=== PATIENT | female | born 1965 | race Caucasian/White ===

== ENCOUNTER 2018-02-28 13:43 | Emergency (ER) | payer OTHER, MEDICAID | END 2018-02-28 16:38 | disposition home or self-care (01) | LOC: FTE 13:43 | DX: M54.2 Cervicalgia (principal); M62.838 Other muscle spasm; Z87.891 Personal history of nicotine dependence | CPT/HCPCS: 72040; 93005; 99284-25 ==

== ENCOUNTER 2019-02-16 18:29 | Emergency (ER) | payer OTHER | END 2019-02-16 21:14 | disposition home or self-care (01) | LOC: FTE 18:29 | DX: K08.9 Disorder of teeth and supporting structures, unspecified (principal); G56.03 Carpal tunnel syndrome, bilateral upper limbs; J45.909 Unspecified asthma, uncomplicated; F17.210 Nicotine dependence, cigarettes, uncomplicated | CPT/HCPCS: 99283; Z7502 ==

== ENCOUNTER 2019-04-08 08:15 | Emergency (ER) | payer OTHER ==
[2019-04-08] MEDS: DIPHENHYDRAMINE 25 MG CAP PO (08:37)
== END 2019-04-08 08:43 | disposition home or self-care (01) ==
LOC: FTE 08:15
DX: S60.561A Insect bite (nonvenomous) of right hand, initial encounter (principal); J45.909 Unspecified asthma, uncomplicated; F17.210 Nicotine dependence, cigarettes, uncomplicated; W57.XXXA Bitten or stung by nonvenomous insect and other nonvenomous arthropods, initial encounter; Y92.9 Unspecified place or not applicable
CPT/HCPCS: 99283; Z7502